=== PATIENT | female | born 1950 | race Caucasian/White ===

== ENCOUNTER 2021-10-08 13:58 | Inpatient (IN) | payer OTHER, BC ==
[2021-10-08] MEDS ORDERED: METOPROLOL TARTRATE 50 MG TABLET (FP) PO ONE (14:29)
[2021-10-08] MEDS ORDERED: METOPROLOL TARTRATE 50 MG TABLET (FP) ONE (14:49)
[2021-10-08 15:06] LABS: HEMATOCRIT 43.4 % (32.4-45.2); MCH 30.6 pg (25.7-33.7); MCHC 34.6 g/dl (32.0-36.0); MEAN CELL VOLUME 88.4 fl (80-96); MEAN PLT VOLUME 9.8 fl (7.5-11.1); PLATELET COUNT 237.3 10^3/uL (134-434); RBC 4.91 10^6/uL (3.60-5.2); RDW 14.4 % (11.6-15.6); WHITE BLOOD COUNT 8.1 10^3/uL (4.0-10.8)
[2021-10-08 15:12] LABS: ALBUMIN 4.5 g/dl (3.4-5.0); BILIRUBIN,TOTAL 1.4 mg/dl (0.2-1); CALCIUM 9.5 mg/dl (8.5-10); CREATININE 1.1 mg/dl (0.55-1.3); TOT PROT 7.6 g/dl (6.4-8.2)
[2021-10-08] MEDS ORDERED: HYDROCHLOROTHIAZIDE 25 MG TABLET (FP) PO ONE (16:17)
[2021-10-08] MEDS ORDERED: HYDROCHLOROTHIAZIDE 25 MG TABLET (FP) ONE (16:19)
[2021-10-08] MEDS ORDERED: amLODIPine BESYLATE 5 MG TABLET (FP) PO ONE (17:19)
[2021-10-08] MEDS ORDERED: amLODIPine BESYLATE 5 MG TABLET (FP) ONE (17:29)
[2021-10-08] MEDS ORDERED: hydrALAZINE HCL 20 MG/ML VIAL IVPUSH ONE (18:44)
[2021-10-08] MEDS ORDERED: hydrALAZINE HCL 20 MG/ML VIAL ONE (18:54)
[2021-10-08] MEDS ORDERED: ACETAMINOPHEN 325 MG TABLET (FP) PO ONE (22:54)
[2021-10-08 23:19] VITALS: BMI 26.5
[2021-10-08] MEDS ORDERED: ACETAMINOPHEN 325 MG TABLET (FP) ONE (23:25)
[2021-10-09] MEDS ORDERED: hydrALAZINE HCL 20 MG/ML VIAL IVPUSH ONE (04:23)
[2021-10-09] MEDS: hydrALAZINE HCL 25 MG TABLET (FP) PO SCH ×2 (06:19→14:55)
[2021-10-09] MEDS: HEPARIN NA (PORCINE) 5,000 UNITS/ML 1ML VIAL SQ SCH ×3 (06:19→21:37)
[2021-10-09 07:06] LABS: EOS % 1.7 % (0-4.5); HEMATOCRIT 41.4 % (32.4-45.2); HEMOGLOBIN 13.8 GM/dL (10.7-15.3); LYMPH % 20.1 % (8-40); MCH 29.3 pg (25.7-33.7); MCHC 33.3 g/dl (32.0-36.0); MEAN CELL VOLUME 88.1 fl (80-96); MONO % 5.5 % (3.8-10.2); NEUT % 71.7 % (42.8-82.8); PLATELET COUNT 237 10^3/uL (134-434); RDW 12.9 % (11.6-15.6); WHITE BLOOD COUNT 8.6 K/mm3 (4.0-10.0)
[2021-10-09 07:27] LABS: BLOOD UREA NITROGEN 17.4 mg/dL (7-18); CALCIUM 9.5 mg/dL (8.5-10.1)
[2021-10-09 07:28] LABS: ALBUMIN 3.7 g/dl (3.4-5.0); MAGNESIUM 2.1 mg/dL (1.8-2.4)
[2021-10-09 07:30] LABS: PHOSPHOROUS 3.7 mg/dL (2.5-4.9)
[2021-10-09 07:31] LABS: BILIRUBIN,TOTAL 1.1 mg/dL (0.2-1); TOT PROT 7.2 g/dl (6.4-8.2)
[2021-10-09] MEDS ORDERED: ASCORBIC ACID PO SCH (10:00)
[2021-10-09] MEDS ORDERED: MULTIVIT MIN PO SCH (10:00)
[2021-10-09] MEDS ORDERED: [UNRECOGNIZED DRUG - OTHER] PO SCH (10:00)
[2021-10-09] MEDS: LABETALOL HCL 200 MG TABLET (FP) PO SCH ×3 (10:01→21:38)
[2021-10-09] MEDS: LOSARTAN POTASSIUM 50 MG TABLET PO SCH (10:01)
[2021-10-09] MEDS: CHLORTHALIDONE 25 MG TABLET PO SCH (18:02)
[2021-10-09] MEDS: NIFEdipine E.R. 30 MG TABLET PO SCH (18:02)
[2021-10-09] MEDS ORDERED: ATORVASTATIN CA 40 MG TABLET (FP) PO SCH (22:00)
[2021-10-10] MEDS: LABETALOL HCL 200 MG TABLET (FP) PO SCH ×2 (06:12→14:12)
[2021-10-10] MEDS: HEPARIN NA (PORCINE) 5,000 UNITS/ML 1ML VIAL SQ SCH ×2 (06:12→14:12)
[2021-10-10 06:28] VITALS: TEMP 97.8
[2021-10-10] MEDS: LOSARTAN POTASSIUM 50 MG TABLET PO SCH (11:47)
[2021-10-10] MEDS: NIFEdipine E.R. 30 MG TABLET PO SCH (11:47)
[2021-10-10] MEDS: CHLORTHALIDONE 25 MG TABLET PO SCH (11:47)
[2021-10-10 12:33] VITALS: BP 156/80; PULSE 74
== END 2021-10-10 15:11 | disposition home or self-care (01) | DRG 305 ==
LOC: FER 13:58 → FM/S 20:13 → J4W 10-09 02:56 → OBSVTOIN 10-09 04:19
PROVIDERS: ADMIT Internal Medicine
DX: I16.0 Hypertensive urgency (principal); E11.9 Type 2 diabetes mellitus without complications; E78.5 Hyperlipidemia, unspecified; I10 Essential (primary) hypertension; Z79.84 Long term (current) use of oral hypoglycemic drugs
CPT/HCPCS: 36415; 80053; 82088; 82465; 82533; 83036; 83735; 84100; 84244; 84443; 84484; 85025; 85027; 93005; 93306-TC; 99285-25; C9803-CS; G0378; J1644; U0003; U0005

== ENCOUNTER 2021-10-23 18:26 | Emergency (ER) | payer OTHER, BC ==
[2021-10-23 18:43] VITALS: TEMP 98.4; BMI 27.1
[2021-10-23] MEDS ORDERED: LABETALOL HCL 200 MG TABLET (FP) PO ONE (20:13)
[2021-10-23] MEDS ORDERED: LABETALOL HCL 200 MG TABLET (FP) ONE (20:16)
[2021-10-23 21:09] VITALS: PULSE 78
[2021-10-23 21:38] VITALS: BP 197/105
== END 2021-10-23 22:05 | disposition home or self-care (01) ==
LOC: FER 18:26
DX: I10 Essential (primary) hypertension (principal)
CPT/HCPCS: 99283-25

== ENCOUNTER 2022-02-05 08:49 | Day surgery (SDC) | payer OTHER, BC ==
[2022-02-03 17:43] VITALS: BMI 26.6
[2022-02-05] MEDS ORDERED: NEO/POLYMYX B SULF/DEXAMETH OPHTHALMIC 5ML BOTTLE ONE (09:04)
[2022-02-05] MEDS ORDERED: CARBACHOL 0.01% INTRA-OCULAR 1.5 ML VIAL ONE (09:04)
[2022-02-05] MEDS ORDERED: BSS (NA/CA/MG/K) BALANCED SALT SOLUTION OPHTH SOLN 15 ML BOTTLE ONE (09:04)
[2022-02-05] MEDS ORDERED: LIDOCAINE 1% P/F 10 MG/ML VIAL ONE (09:04)
[2022-02-05] MEDS: TROPICAMIDE 1% OPHTH SOLN 15 ML BOTTLE ONE ×3 (10:05→10:15)
[2022-02-05] MEDS: PHENYLEPHRINE 2.5% OPHTH SOLN 15 ML BOTTLE ONE ×3 (10:05→10:15)
[2022-02-05] MEDS: CYCLOPENTOLATE 2% OPHTH SOLN 2 ML BOTTLE ONE ×3 (10:05→10:15)
[2022-02-05] MEDS: CIPROFLOXACIN 0.3% EYE DROPS 5 ML BOTTLE ONE ×3 (10:05→10:15)
[2022-02-05 10:07] VITALS: TEMP 97.6
[2022-02-05] MEDS ORDERED: MIDAZOLAM HCL 2 MG/2 ML SINGLE DOSE VIAL ONE (11:05)
[2022-02-05 11:33] VITALS: PULSE 78; RESP 18
[2022-02-05 11:49] VITALS: BP 120/87
== END 2022-02-05 12:15 | disposition home or self-care (01) ==
LOC: FASU 08:49
PROVIDERS: ATTEND Ophthalmology
PROC: 08RK3JZ Replacement of Left Lens with Synthetic Substitute, Percutaneous Approach (ICD-10-PCS; principal; 2022-02-05 11:10)
DX: H26.8 Other specified cataract (principal)
CPT/HCPCS: 82962

== ENCOUNTER 2022-03-26 06:17 | Day surgery (SDC) | payer OTHER, BC ==
[2022-03-24 12:00] VITALS: BMI 26.6
[2022-03-26 06:32] VITALS: RESP 18
[2022-03-26 06:48] VITALS: TEMP 97.8
[2022-03-26] MEDS: CYCLOPENTOLATE 2% OPHTH SOLN 2 ML BOTTLE ONE ×3 (06:55→07:05)
[2022-03-26] MEDS: PHENYLEPHRINE 2.5% OPHTH SOLN 15 ML BOTTLE ONE ×3 (06:55→07:05)
[2022-03-26] MEDS: CIPROFLOXACIN 0.3% EYE DROPS 5 ML BOTTLE ONE ×3 (06:55→07:05)
[2022-03-26] MEDS: TROPICAMIDE 1% OPHTH SOLN 15 ML BOTTLE ONE ×3 (06:55→07:05)
[2022-03-26] MEDS ORDERED: CARBACHOL 0.01% INTRA-OCULAR 1.5 ML VIAL ONE (07:17)
[2022-03-26] MEDS ORDERED: EPINEPHrine/PF 1 MG/1 ML (1:1,000) AMPULE ONE (07:17)
[2022-03-26] MEDS ORDERED: TETRACAINE 0.5% OPHTH SOLN 2 ML BOTTLE ONE (07:17)
[2022-03-26] MEDS ORDERED: PHENYLEPHRINE/KETOROLAC 4 ML VIAL IO ONE (07:17)
[2022-03-26] MEDS ORDERED: BSS (NA/CA/MG/K) BALANCED SALT SOLUTION OPHTH SOLN 15 ML BOTTLE ONE (07:17)
[2022-03-26] MEDS ORDERED: TRYPAN BLUE 0.5 ML DISP.SYRIN ONE (07:17)
[2022-03-26] MEDS ORDERED: LIDOCAINE HCL/PF 1% SDV 5ML VIAL ONE (07:18)
[2022-03-26] MEDS ORDERED: NEO/POLYMYX B SULF/DEXAMETH OPHTHALMIC 5ML BOTTLE ONE (07:18)
[2022-03-26] MEDS ORDERED: ACETYLCHOLINE 1:100 INTRA-OCUL 20 MG/2 ML KIT ONE (07:18)
[2022-03-26] MEDS ORDERED: MIDAZOLAM HCL 2 MG/2 ML SINGLE DOSE VIAL ONE (08:00)
[2022-03-26] MEDS ORDERED: ONDANSETRON 4 MG/2 ML VIAL ONE (08:00)
[2022-03-26 08:41] VITALS: PULSE 78
[2022-03-26 09:21] VITALS: BP 122/74
[2022-03-26] MEDS ORDERED: ACETAMINOPHEN 325 MG TABLET (FP) PO PRN (09:47)
[2022-03-26] MEDS ORDERED: ONDANSETRON 4 MG/2 ML VIAL IVPUSH PRN (09:47)
== END 2022-03-26 09:28 | disposition home or self-care (01) ==
LOC: FASU 06:17
PROVIDERS: ATTEND Ophthalmology
PROC: 08RJ3JZ Replacement of Right Lens with Synthetic Substitute, Percutaneous Approach (ICD-10-PCS; principal; 2022-03-26 08:16)
DX: H26.8 Other specified cataract (principal)
CPT/HCPCS: 66984; V2632; 82962; J1097